=== PATIENT | male | born 1945 | race Caucasian/White ===

== ENCOUNTER → 2020-08-17 | Outpatient (CLI) | payer MEDICARE, OTHER | LOC: EMI 08-14 16:30 | DX: M51.36 Other intervertebral disc degeneration, lumbar region (principal); M47.816 Spondylosis without myelopathy or radiculopathy, lumbar region; M51.26 Other intervertebral disc displacement, lumbar region; M48.061 Spinal stenosis, lumbar region without neurogenic claudication; M47.817 Spondylosis without myelopathy or radiculopathy, lumbosacral region; M51.27 Other intervertebral disc displacement, lumbosacral region; M48.07 Spinal stenosis, lumbosacral region | CPT/HCPCS: 72148 ==

== ENCOUNTER → 2020-12-03 | Outpatient (CLI) | payer MEDICARE, OTHER | LOC: OPSV 14:54 | DX: E11.9 Type 2 diabetes mellitus without complications (principal); I10 Essential (primary) hypertension; J98.4 Other disorders of lung; I44.4 Left anterior fascicular block | CPT/HCPCS: 93005 ==

== ENCOUNTER → 2021-08-22 | Outpatient (CLI) | payer MEDICARE, OTHER | LOC: LAB 14:57 | PROVIDERS: Internal Medicine Nephrology | DX: E83.52 Hypercalcemia (principal); N18.2 Chronic kidney disease, stage 2 (mild) | CPT/HCPCS: 36415; 80053; 82330; 82570; 83970; 84156 ==